=== PATIENT | female | born 1940 | race Caucasian/White ===

== ENCOUNTER 2022-03-06 15:28 | Emergency (ER) | payer MEDICARE, OTHER ==
[2022-03-06] MEDS ORDERED: Sodium Chloride 0.9% 10 ML Syringe FLUSH PRN (15:36)
[2022-03-06 16:36] LABS: CORONAVIRUS COVID-19 NAA NEGATIVE (NEGATIVE)
[2022-03-06 16:48] LABS: ANION GAP 13.9 mEq/L (7-13); CHLORIDE,CL 100 mmol/L (98-107); SODIUM,NA 135 mmol/L (136-145)
[2022-03-06 16:54] LABS: ESTIMATED GFR 30 mL/min (>=60)
[2022-03-06] MEDS ORDERED: Sodium Chloride 0.9% 1,000 ML IV ONE ×2 (17:18→18:13)
[2022-03-06 18:53] LABS: ANION GAP 11.7 mEq/L (7-13)
== END 2022-03-06 19:50 | disposition home or self-care (01) ==
LOC: DL.ED 15:28
DX: E86.0 Dehydration (principal); E11.9 Type 2 diabetes mellitus without complications; I48.91 Unspecified atrial fibrillation; Z79.01 Long term (current) use of anticoagulants; Z20.822 Contact with and (suspected) exposure to COVID-19
CPT/HCPCS: 0240U; 36415; 71045; 80053; 81001; 83605; 83735; 83880; 84484; 85025; 85610; 86140; 93005; 96360; 96361; 99285; J3490; J7030

== ENCOUNTER 2024-11-02 23:39 | Emergency (ER) | payer MEDICARE, OTHER ==
[2024-11-03 00:21] LABS: BASOPHILS PERCENT AUTO 0.4 % (0.0-1.0); EOSINOPHILS PERCENT AUTO 0.4 % (1.0-3.0); LYMPHOCYTES PERCENT AUTO 28.6 % (20.5-50.1); MONOCYTES PERCENT AUTO 8.4 % (2-8); NEUTROPHILS PERCENT AUTO 62.2 % (42.2-75.2); PLATELET COUNT,PLT 272 10^3/uL (150-450); RED BLOOD CELL COUNT 4.12 10^6/uL (4.2-5.4); WHITE BLOOD CELL COUNT,WBC 6.8 10^3/uL (5.0-10.0)
[2024-11-03 00:42] LABS: A/G RATIO 0.9; ALANINE AMINOTRANSFERASE,ALT 18 U/L (14-59); ASPARTATE AMNIOTRANSFERASE,AST 14 U/L (15-37); BILIRUBIN TOTAL 0.3 mg/dL (0.2-1.0); BLOOD UREA NITROGEN,BUN 23 mg/dL (7-18); CARBON DIOXIDE,CO2 33 mmol/L (21-32); CHLORIDE,CL 95 mmol/L (98-107); CREATININE 1.24 mg/dL (0.55-1.02); GLUCOSE RANDOM 201 mg/dL (70-99); POTASSIUM,K 2.9 mmol/L (3.5-5.1); PROTEIN TOTAL,TP 7.2 g/dL (6.4-8.2); SODIUM,NA 136 mmol/L (136-145)
[2024-11-03 00:45] LABS: ESTIMATED GFR 43 mL/min (>=60)
[2024-11-03 00:50] LABS: O2 DELIVERY DEVICE NASAL CANNULA
[2024-11-03 00:51] LABS: PH,VENOUS 7.48 (7.31-7.41)
[2024-11-03 00:52] LABS: BASE EXCESS VENOUS 7.8 mmol/l ((-2)-(+3)); BICARBONATE,VENOUS 32 mmol/l (19-25); O2 SATURATION VENOUS 82.8 % (60-80); PCO2 VENOUS 44 mmHg (41-51); PO2 VENOUS 57 mmHg (35-42)
[2024-11-03 00:55] LABS: LACTIC ACID 2.1 mmol/L (0.4-2.0)
[2024-11-03] MEDS: Potassium Chloride 10% 20 MEQ/15 ML Soln 15 ML UD Cup PO STA (01:43)
[2024-11-03] MEDS: Potassium Chloride 10 MEQ Tab.ER PO ONE (01:53)
[2024-11-03] MEDS: Ondansetron 4 MG Tab.DIS PO ONE (02:57)
== END 2024-11-03 03:00 | disposition home or self-care (01) ==
LOC: DL.ED 23:39
DX: J44.1 Chronic obstructive pulmonary disease with (acute) exacerbation (principal); I48.0 Paroxysmal atrial fibrillation; Z79.01 Long term (current) use of anticoagulants
CPT/HCPCS: 36415; 71045; 80053; 82803; 83605; 83735; 84484; 85025; 94640; 94762; 99285; A9270; J8540